=== PATIENT | male | born 1985 | race African-American/Black ===

== ENCOUNTER 2025-05-09 06:39 | Day surgery (SDC) | payer BC ==
[2025-05-08 08:36] VITALS: BMI 21.6
[2025-05-09] MEDS ORDERED: Lidocaine 1% (PF) 30 ML VIAL ONE (07:04)
[2025-05-09] MEDS ORDERED: PROPOFOL 40 ML ONE (07:04)
[2025-05-09] MEDS ORDERED: Ketorolac Tromethamine 30 MG (1 mL) VIAL ONE (07:04)
[2025-05-09] MEDS ORDERED: Lidocaine 2% PF 100 mg/5 ml Syringe ONE (07:05)
[2025-05-09] MEDS ORDERED: CEFAZOLIN 2 GM VIAL ONE (07:26)
== END 2025-05-09 11:00 | disposition home or self-care (01) ==
LOC: CSHSDC 06:39
PROVIDERS: ATTEND Podiatrist Foot & Ankle Surgery
PROC: 0SRQ0JZ Replacement of Left Toe Phalangeal Joint with Synthetic Substitute, Open Approach (ICD-10-PCS; principal; 2025-05-09)
DX: M20.42 Other hammer toe(s) (acquired), left foot (principal)
CPT/HCPCS: J0665; J1100; J1885; J2003; J2250; J2704; J3010